=== PATIENT | male | born 1960 | race Caucasian/White ===

== ENCOUNTER 2023-09-11 12:51 | Day surgery (SDC) | payer OTHER ==
[2023-09-05 11:43] LABS: Potassium 3.7 mEq/L (3.5-5.1)
--- NOTE | 2023-09-06 16:52 | EKG ---
Test Date: 2023-09-05 Test Time: 11:59:09 Digital Photographic Printer: TONY MEASUREMENT RESULTS: Intervals: Rate: 58 [place]: 168 QRSD: 100 QT: 414 QTc: 406 [place]: P: 64 [place]: 168 QRS: 33 T: 51 INTERPRETIVE STATEMENTS: Sinus bradycardia Otherwise normal ECG No previous ECG available for comparison Electronically Signed On 09-06-23 16:49:48 [employer] by Tr Paul
[2023-09-11] MEDS ORDERED: Ringers Lactate 1,000 ML IV ONE ×2 (13:22→17:12)
[2023-09-11] MEDS ORDERED: propofoL 200 MG/20 ML VIAL IV ONE (14:27)
[2023-09-11] MEDS ORDERED: FENTANYL CITR 100 MCG/2 ML ONE ×2 (14:27→15:29)
[2023-09-11] MEDS ORDERED: LIDOCAINE 2% MPF 5 ML VIAL ONE (14:28)
[2023-09-11] MEDS ORDERED: MIDAZOLAM HCL 2 MG/2 ML INJ ONE (14:28)
[2023-09-11] MEDS: BUPIVACAINE 0.25% PF 30 ML VIAL ONE ×2 (14:28→15:07)
[2023-09-11] MEDS: CEFAZOLIN SODIUM 1 GM/VIAL ONE ×2 (14:28→15:00)
[2023-09-11] MEDS ORDERED: ONDANSETRON 4 MG/2 ML VIAL ONE (14:34)
[2023-09-11] MEDS ORDERED: GLYCOPYRROLATE 0.2 MG/ML SYR ONE (15:18)
[2023-09-11] MEDS ORDERED: KETOROLAC 30 MG/ML INJ ONE (15:23)
--- NOTE | 2023-09-11 15:50 | P.OP ---
Preoperative diagnosis: RIGHT inguinal hernia Postoperative diagnosis: RIGHT inguinal hernia Primary procedure: Open RIGHT inguinal hernia repair with mesh Anesthesia: GETA + Local Estimated blood loss: <5cc Specimen: cord lipoma Findings: indirect inguinal hernia, thin ext oblique aponeurosis Complications: None Implants: Bard Medium Perfix plug and patch Transferred to: Recovery Room Condition: Good
[2023-09-11 16:04] VITALS: O2SAT 100
[2023-09-11] MEDS: HYDROMORPHONE HCL 1 MG/ML INJ ONE ×2 (16:18→16:23)
[2023-09-11] MEDS ORDERED: HYDROMORPHONE HCL 1 MG/ML INJ ONE (16:41)
[2023-09-11] MEDS ORDERED: HYDROCODONE/APAP 10/325 TAB ONE (17:09)
[2023-09-11 18:45] VITALS: BP 138/100; TEMP 977.5
--- NOTE | 2023-09-11 19:16 | OP ---
Date of Procedure: 09/11/2023 Surgeon: Corbin Kramer MD, Preoperative Diagnosis: Right inguinal hernia. Postoperative Diagnosis: Right inguinal hernia. Procedure Performed: Open right inguinal hernia repair with mesh. Anesthesia: General endotracheal local with 0.25% Marcaine. Estimated Blood Loss: 5 mL. Specimens: Cord lipoma. Findings: Indirect inguinal hernia and a thin external oblique aponeurosis. Complications: None. Implants: Bard medium PerFix plug and patch hernia repair system. Disposition: The patient was transferred to the recovery room in good condition. Procedure In Detail: After informed consent was obtained, the patient was brought to the operating r oom, prepped and draped in the usual sterile fashion. After adequate anesthesia was achieved, I made an inguinal incision down to subcutaneous tissues using a 15 blade. I then dissected down in the Ca mper's fat and Twan fascia to expose the external oblique aponeurosis, which was opened sharply fol lowing the muscular fibers. At this point, I opened in its entirety using Metzenbaum scissors, prote cting ilioinguinal iliohypogastric nerves throughout. I then opened and encircled the spermatic cord structures after dissecting free from surrounding tissues. A cord lipoma was appreciated at this po int, and removed at this point using electrocautery and sent off for pathologic examination. I then dissected down to the deep inguinal ring where indirect inguinal hernia with adipose tissue was conta ined at this point. This was dissected free circumferentially from the spermatic cord structures and returned to the preperitoneal space at this point, I then palpated the region and found that a mediu m plug would be appropriate for this area. I then deployed a medium Bard PerFix plug into the [facility] inguinal hernia defect. At this point, I secured it circumferentially around using 3 interrupted 2-0 PDS sutures to secure the mesh in its position, which was good at this point. I then sized a Lic htenstein hernia patch appropriately and secured to the pubic tubercle on medial aspect on the shelvi ng edge of both the internal oblique aponeurosis and the shelving edge of the inguinal ligament using interrupted 2-0 PDS sutures and reconstituted the deep inguinal ring with the same set 2-0 PDS sutur e. The external oblique aponeurosis was then closed over the top using running 3-0 Vicryl suture and the area was irrigated once again. The Mikes fat and Twan fascia was closed en bloc using inte rrupted 3-0 Vicryl suture. Deep dermal plane was closed using 3-0 Vicryl suture in an interrupted fa shion. Skin was closed with a 4-0 Monocryl in a running fashion. Dermabond was placed over top. Th e patient tolerated the procedure without evidence of complication and transferred back in good condi tion. All counts were correct at the end of the case. NICO/JERSON Voice ID: [id number] Report ID: [id number]
== END 2023-09-11 18:48 | disposition home or self-care (01) ==
LOC: OR 12:51
PROVIDERS: ATTEND Surgery
PROC: 0YU50JZ Supplement Right Inguinal Region with Synthetic Substitute, Open Approach (ICD-10-PCS; principal; 2023-09-11 15:45)
DX: K40.90 Unilateral inguinal hernia, without obstruction or gangrene, not specified as recurrent (principal)
CPT/HCPCS: 93005; 80048; 36415; 88302; 49505; J2704; J2001; J2250; J3010 ×2; J1170 ×2; J2405; J7120 ×2; J0690